=== PATIENT | male | born 1970 | race Caucasian/White ===

== ENCOUNTER 2018-10-20 08:40 | Day surgery (SDC) | payer BC ==
[2018-10-20 10:35] VITALS: BP 120/89; PULSE 64; RESP 18; TEMP 97.6; O2SAT 61
== END 2018-10-20 11:03 | disposition home or self-care (01) ==
LOC: SURG 08:40
PROVIDERS: ATTEND Surgery
DX: Z12.11 Encounter for screening for malignant neoplasm of colon (principal); D12.5 Benign neoplasm of sigmoid colon; D12.3 Benign neoplasm of transverse colon; K63.5 Polyp of colon
CPT/HCPCS: 99001; J2704